=== PATIENT | male | born 1945 | race Caucasian/White ===

== ENCOUNTER → 2017-02-28 16:29 | Outpatient (CLI) | payer MEDICARE ==
[2016-06-20 12:31] VITALS: BMI 29.8
[~2017-02-28 16:29] MED LIST: ALEVE220 MG PO; ALLEGRA-D1 TAB.SR1; ASPIRIN EC81 MG PO; CELEBREX200 MG PO; CO Q-10100 MG PO; CO Q-1030 MG; COREG12.5 MG; COREG6.25 MG OR; FLUTICASONE PRO16 GM NS; GLUCOSAMINE HC500 MG; IMDUR30 MG PO; IMDUR60 MG PO; MUCINEX600 MG; NITROQUICK0.4 MG; NORCO 5/325 TAB1 TA1; POTASSIUM99 M1 PO; POVIDONE-IODINE30 GM TP; PRAVACHOL40 MG PO; PRINIVIL10 MG PO; PRINIVIL20 MG PO; PROSTATE MED; SAW PALMETTO450 MG PO; ZOCOR40 MG PO
[2017-02-28 17:04] LABS: CHOL - HDL RATIO 3.2 ratio (2.3-4.9); LDL-HDL RATIO 1.9 ratio (1.5-3.5)
== END | disposition home or self-care (01) ==
LOC: D.LABREF 16:29
PROVIDERS: Internal Medicine Cardiovascular Disease
DX: E78.5 Hyperlipidemia, unspecified (principal)

== ENCOUNTER → 2019-01-30 08:09 | Outpatient (CLI) | payer MEDICARE | END | disposition home or self-care (01) | LOC: D.HCCARDIO 08:09 | DX: I34.0 Nonrheumatic mitral (valve) insufficiency (principal) ==

== ENCOUNTER → 2020-02-25 09:46 | Outpatient (CLI) | payer MEDICARE ==
[2016-06-20 12:31] VITALS: BMI 29.8
== END | disposition home or self-care (01) ==
LOC: D.HCCECHO 09:46
PROVIDERS: ATTEND Internal Medicine Cardiovascular Disease
DX: I05.9 Rheumatic mitral valve disease, unspecified (principal)

== ENCOUNTER → 2020-05-05 09:00 | Outpatient (CLI) | payer MEDICARE ==
[2016-06-20 12:31] VITALS: BMI 29.8
== END | disposition home or self-care (01) ==
LOC: D.HCCARDIO 09:00
PROVIDERS: ATTEND Internal Medicine Cardiovascular Disease
DX: I25.10 Atherosclerotic heart disease of native coronary artery without angina pectoris (principal)

== ENCOUNTER 2020-05-26 06:07 | Day surgery (SDC) | payer MEDICARE ==
[~2020-05-26] VITALS: Ht 170.2 cm; Wt 82.1 kg
--- NOTE | ~2020-05-26 | HEMODYNAMI ---
PATIENT:NIKKI NOVAK MEDICAL RECORD: [id number] : 49 LOCATION:[facility] ADMISSION DATE: 05/26/20 Generatedon:05/26/20208:34 Patient name: NIKKI NOVAK Patient #: [id number] SSN: [id number] : 1945 Date of study: 05/26/2020 Page: Of Hemodynamic Procedure Report Patient Data Patient Demographics Procedure consent was obtained First Name: NIKKI Gender: Male Last Name: SCARLET : 1945 Middle Initial: E Age: 74 year(s) Patient #: [id number] Race: SSN: [id number] Additional ID: [id number] Contact details [address]: [address] [place] [address] State: [place] City: [place] Zip code: [address] Past Medical History Performed procedures and imaging results Date Procedure Procedure Results Comments 05/05/2020 Stress testing Positive->Intermediate with SPECT MPI risk History of disease Date Diagnosis Comments CAD Allergies Allergen Reaction Date Comments Reported Iodine 06/20/2016 Codeine 06/20/2016 Other allergy 05/26/2020 Iodine, Codeine Admission Admission Data Admission Date: 05/26/2020 Admission Time: 6:07 Arrival Date: 05/26/2020 Arrival Time: 0:00 Admit Source: Other Insurance Payor: Medicare [facility] #: [id number] Height (in.): 67 BSA: 1.94 (m2) Height (cm.): 170.18 BMI: 28.31 (kg/m2) Weight (lbs.): 180.78 Weight (kg.): 82 Lab Results Lab Result Date: 05/26/2020 Lab Result Time: 6:55 Biochemistry Name Units Result Min Max BUN mg/dl 22 --(----)-* 7 18 Creatinine mg/dl 1 --(--*-)-- 0.6 1.3 eGFR ml/min 78 *-(----)-- 90 120 NONAFRICAN CBC Name Units Result Min Max Hematocrit % 42 --(*---)-- 42 54 Hemoglobin g/dl 14 --(*---)-- 13.5 17.5 Procedure Procedure Types Cath Procedure Diagnostic Procedure [facility] w/Coronaries w/Grafts Sedation Charges Moderate Sedation up to 15 minutes Procedure Description Procedure Date Procedure Date: 05/26/2020 Procedure Start Time: 8:14 Procedure End Time: 8:32 Procedure Staff Name Function Catracho Bravo MD Performing Physician Jean-Claude Sher RT Monitor Nancy Britton RT Scrub Rachelle Jenkins RN Nurse Procedure Data Cath Procedure Fluoroscopy Diagnostic fluoroscopy Total fluoroscopy Time: 3.2 time: 3.2 min min Diagnostic fluoroscopy Total fluoroscopy dose: 451 dose: 451 mGy mGy Contrast Material Contrast Material Type Amount (ml) Isovue 300 76 Entry Location Entry Primary Successful Side Size Upsize Upsize Entry Closure Succes sful Closure Location (Fr) 1 (Fr) 2 (Fr) Remarks Device Remarks Femoral Right 5 Fr Exoseal artery Estimated blood loss: 5 ml Diagnostic catheters Device Type Used For End Catheter Placement MULTIPACK JL 4.0 5Fr Procedure catheter DIAGNOSTIC AR1 MOD 5Fr Procedure catheter ([id number]) DIAGNOSTIC IM 5Fr Procedure catheter ([id number]) MULTIPACK Pigtail 5 Fr Procedure catheter Procedure Complications No complications Procedure Medications Medication Administration Route Dosage Oxygen etCO2 Nasal cannula 2 l/min Lidocaine 2% added to field 20 Heparin Flush Bag added to field 2 bags (1000units/500ml NS) 0.9% NaCl I.V. 100 ml/hr Versed I.V. 1 mg Fentanyl I.V. 50 mcg Versed I.V. 1 mg Fentanyl I.V. 50 mcg Versed I.V. 1 mg Hemodynamics Rest BSA: 1.94 (m2) HGB: 14 (g/dl) O2 Consumption: Estimated: 218.59 (ml/min) O2 Cons umption indexed: Estimated:112.68 (ml/min/m) Heart Rate: 63 (bpm) Pressure Samples Time Site Value (mmHg) Purpose Heart Use Rate(bpm) 8:25 LV 157/6,22 Snapshot 82 8:26 AO 144/67(99) Pullback 66 8:26 LV 151/10,22 Pullback 66 Gradients Valve Time Site 1 Site 2 Mean SEP/DFP Peak To Heart Use (mmHg) (sec/min) Peak Rate (mmHg) (bpm) Aortic 8:26 LV AO 6 14 7 66 151/10,22 144/67(99) Calculations Valve P-P Mean Valve Index Valve Source Name Gradient Area Flow (cm2) Aortic 7 6 7 6 Snapshots Pre Cath Intra NCS Post Cath Vital Signs Time Heart Resp SPO2 etCO2 NIBP (mmHg) Rhythm Pain Sedation Rate (ipm) (%) (mmHg) Status Level (bpm) 7:58:37 62 16 100 0 146/80(126) NSR 0 (11) 10(A) , No pain 8:03:00 58 13 100 33.7 149/83(128) NSR 0 (11) 10(A) , No pain 8:07:24 61 15 98 34.5 139/80(120) NSR 0 (11) 10(A) , No pain 8:11:44 63 16 94 39 145/87(120) NSR 0 (11) 9(A) , No pain 8:16:02 63 14 95 41.2 145/81(95) NSR 0 (11) 9(A) , No pain 8:20:24 64 15 97 45 156/84(132) NSR 0 (11) 9(A) , No pain 8:24:46 63 17 97 46.5 143/87(110) NSR 0 (11) 9(A) , No pain 8:29:08 63 17 98 41.3 142/81(124) NSR 0 (11) 10(A) , No pain Medications Time Medication Route Dose Verified Delivered Reason Notes Effe ctiveness by by 8:01:26 Oxygen etCO2 2 Catracho Buffie used for Nasal l/min Lawrence Jenkins RN procedure cannula 8:01:49 0.9% NaCl I.V. 100 Catracho Buffie Per ml/hr Lawrence Jenkins RN physician 8:04:10 Versed I.V. 1 mg Catracho Buffie for Lawrence Jenkins RN sedation 8:04:15 Fentanyl I.V. 50 Catracho Buffie for mcg Lawrence Jenkins RN sedation 8:04:33 Lidocaine 2% added 20ml Catracho Catracho for local to vial Lawrence Bravo MD anesthetic field 8:04:40 Heparin Flush added 2 Catracho Catracho used for Bag to bags Lawrence Bravo MD procedure (1000units/500ml field NS) 8:09:41 Versed I.V. 1 mg Catracho Quianaie for Lawrence Jenkins RN sedation 8:09:44 Fentanyl I.V. 50 Catracho Quianaie for [facility] Lawrence Jenkins RN sedation 8:17:37 Versed I.V. 1 mg Catracho Rachelle for Lawrence Jenkins RN sedation Procedure Log Time Note 7:27:06 Informed consent obtained and on chart 7:33:39 Admit Source: Other 7:35:44 Patient Height : 67 inches 7:35:49 Patient Weight : 180.78 lbs 7:35:55 Insurance Payor : Medicare 7:36:33 Arrival Date: 05/26/2020 12:00:00 AM 7:38:16 Lab Result : Hemoglobin 14 g/dl 7:38:16 Lab Result : Hematocrit 42 % 7:38:16 Lab Result : eGFR NONAFRICAN 78 ml/min 7:38:16 Lab Result : BUN 22 mg/dl 7:38:16 Lab Result : Creatinine 1 mg/dl 7:38:34 Diagnostic Cath Status : Elective 7:38:45 ACC Patient presents with Stable Angina CCS Anginal Class 2--Slight limitation of ordinary activity. 7:38:48 ACCPatient has been prescribed/administered the following anti-anginal medication within the last 2 weeks: Beta Joy 7:38:51 Procedure Status Elective Heart Cath (OP). 7:38:52 Time tracking: Regular hours (M-F 7:00 - 5:00) 7:38:55 Plan of Care:Hemodynamics will remain stable., Cardiac rhythm will remain stable., Comfort level will be maintained., Respiratory function will remain adequate., Patient/ family verbilizes understanding of procedure., Procedure tolerated without complication., Recovers from procedure without complications.. 7:39:14 H&P Date Dictated: 04/27/2020 Within 30 days and on chart., H&P Addendum completed by physician on day of procedure. (MUST COMPLETE FOR ALL OUTPATIENTS). 7:45:19 Rachelle Jenkins RN sent for patient. Start room use. 7:52:34 Patient received from Pre/Post Procedure Room to [facility] Alert and oriented. Tansferred to table in Supine position. 7:52:35 Warm blankets applied, and kita hugger turned on for patient comfort. 7:52:36 Correct patient and procedure confirmed by team. 7:52:37 ECG and BP/O2 sat monitors applied to patient. 7:52:41 Pre-procedure instructions explained to patient. 7:52:41 Pre-op teaching completed and patient verbalized understanding. 7:52:43 Family in waiting room. 7:52:44 Patient NPO since Midnight. 7:57:24 Vital chart was started 7:57:29 Baseline sample Acquired. 7:57:37 Rhythm: sinus rhythm 7:57:40 Full Disclosure recording started 7:57:52 Patient allergic to Other allergyIodine, Codeine 7:57:54 Is the patient allergic to Iodine/contrast media? Yes. 7:57:55 Was the patient premedicated? Yes 7:57:56 Is patient on blood thinner?No 7:58:03 Patient diabetic? No. 7:58:07 Previous problem with sedation/anesthesia? No ? 7:58:09 Snore? No 7:58:09 Sleep apnea? No 7:58:10 Deviated septum? No 7:58:11 Opens mouth fully? Yes 7:58:12 Sticks out tongue? Yes 7:58:13 Airway obstruction? No ? 7:58:15 Dentures? No ? 7:58:17 Pre procedure: right dorsailis pedis pulse 2+ Normal; easily identifiable; not easily obliterated 7:58:19 Patient pain scale 0/10 ?. 7:58:26 IV patent on arrival in left forearm with 0.9% NaCl at KVO. 7:58:28 Lab results completed and on chart. 7:58:56 Stress Test: yes; abnormal Anterior, apical, lateral 7:59:07 Risk of Mortality: <.1% 7:59:11 Risk of blood transfusion: 0.7% 7:59:17 Risk of CARLOTA: 0.3% 7:59:21 Right groin area was prepped with chlora-prep and draped in sterile fashion 7:59:22 Alarms reviewed by R. N. 7:59:22 Sharps counted by scrub and verified by R.N. 7:59:24 Use device set Femoral Dx 7:59:25 ACIST Syringe (61386) opened to sterile field. 7:59:25 Bag Decanter (2002S) opened to sterile field. 7:59:26 Medline Cath Pack ([id number]) opened to sterile field. 7:59:26 ACIST Hand Control (05721) opened to sterile field. 7:59:27 ACIST Manifold (49783) opened to sterile field. 7:59:27 Tegaderm 4 x 4 (1626W) opened to sterile field. 7:59:29 SHEATH 5FR Wray ([id number]) opened to sterile field. 7:59:30 EMERALD Guide Wire (431-739) opened to sterile field. 7:59:31 DIAGNOSTIC Multipack 5Fr catheter set ([id number]) opened to sterile field. 8:01:26 Oxygen 2 l/min etCO2 Nasal cannula was administered by Rachelel Jenkins RN; used for procedure; Verbal order read back and verified. 8:01:49 0.9% NaCl 100 ml/hr I.V. was administered by Rachelle Jenkins RN; Per physician; Verbal order read back and verified. 8:04:10 Versed 1 mg I.V. was administered by Rachelle Jenkins RN; for sedation; Verbal order read back and verified. 8:04:14 Physician arrived 8:04:14 --------ALL STOP TIME OUT------ 8:04:14 Final Timeout: patient, procedure, and site verified with staff and physician. All members of the team are in agreement. 8:04:15 Fentanyl 50 mcg I.V. was administered by Rachelle Jenkins RN; for sedation; Verbal order read back and verified. 8:04:16 Right groin site verified by team. 8:04:19 Fire Safety Assessment: A--An alcohol-based skin anteseptic being used preoperatively., C--Open oxygen or nitrous oxide is being used., D--An ESU, laser, or fiber-optic light is being used. 8:04:22 Physical assessment completed. ASA score P 2 - A patient with mild systemic disease as per Catracho Barvo MD. 8:04:33 Lidocaine 2% 20ml vial added to field was administered by Catracho Bravo MD; for local anesthetic; Verbal order read back and verified. 8:04:38 2) 60-89 Mildly reduced kidney function, and other findings (as for stage 1) point to kidney disease. 8:04:40 Heparin Flush Bag (1000units/500ml NS) 2 bags added to field was administered by Catracho Bravo MD; used for procedure; Verbal order read back and verified. 8:05:53 Maximum allowable contrast dose (3.7 X eGFR X 0.75)216 ml. 8:05:56 Sedation plan: IV Moderate Sedation Medication:Versed, Fentanyl 8:09:25 Zero performed for pressure channel P1 8::41 Versed 1 mg I.V. was administered by Rachelle Jenkins RN; for sedation; Verbal order read back and verified. 8::44 Fentanyl 50 mcg I.V. was administered by Rachelle Jenkins RN; for sedation; Verbal order read back and verified. 8:14:24 Procedure started. 8:14:27 Local anesthetic to right femoral artery with Lidocaine 2% by Catracho Bravo MD.INITIAL ACCESS ONLY 8:15:03 A 5 Fr sheath was inserted into the Right Femoral artery 8:17:29 A MULTIPACK JL 4.0 5Fr catheter was advanced over the wire and used for Procedure. 8:17:37 Versed 1 mg I.V. was administered by Rachelle Jenkins RN; for sedation; Verbal order read back and verified. 8:17:55 LCA angiography performed. 8:18:57 Catheter exchanged over wire. 8:20:27 A DIAGNOSTIC AR1 MOD 5Fr catheter ([id number]) was advanced over the wire and used for Procedure. 8:20:41 SVG to Circ angiography performed. 8:20:56 SVG to RCA angiography performed. 8:21:35 RCA angiography performed. 8:21:45 Catheter exchanged over wire. 8:21:49 A DIAGNOSTIC IM 5Fr catheter ([id number]) was advanced over the wire and used for Procedure. 8:23:25 GUILLEN to LAD angiography performed. 8:24:11 Catheter exchanged over wire. 8:24:17 A MULTIPACK Pigtail 5 Fr catheter was advanced over the wire and used for Procedure. 8:24:18 EXOSEAL 5Fr (EX500) opened to sterile field. 8:25:34 LV gram done using FOUNTAIN 8::38 Injector settings: Ml/sec: 10, Volume: 20, 8:25:39 LV hemodynamics recorded. 8:25:45 EF : 50 % 8:25:56 Catheter removed. 8:26:04 Sheath removed intact; hemostasis achieved with Exoseal to the Right Femoral artery. 8:26:06 Procedure ended.(Physican Out) 8:26:53 Fluoroscopy time 03.20 minutes. 8::56 Flurop Dose total: 451 8::56 Fluoroscopy dose: 451 mGy 8:27:04 Dose Area Product 22158 mGy/cm. 8:27:09 Contrast amount:Isovue 300 76ml. 8:27:11 Maximum allowable dose exceeded? No. 8:27:12 Sharps counted by scrub and verified by R.N. 8:27:14 Insertion/operative site no bleeding no hematoma. 8:27:16 Post-op/insertion site Right Femoral artery dressed using a 4 x 4 and Tegaderm. 8:27:19 Post right femoral artery:stable, soft, clean and dry 8:27:20 Post Procedure Pulses reassessed and unchanged 8:27:27 Post-procedure physical assessment completed. ASA score P 2 - A patient with mild systemic disease as per Catracho Bravo MD. 8:27:30 Post procedure rhythm: unchanged. 8:27:33 Estimated blood loss: 5 ml 8:27:34 Post procedure instruction explained to patient.Patient verbalizes understanding. 8:27:35 Patient needs reinforcement of post procedure teaching. 8:27:50 Procedure type changed to Cath procedure, Diagnostic procedure, LHC, LHC w/Coronaries w/Grafts, Sedation Charges, Moderate Sedation up to 15 minutes 8:31:07 Rachelle Jenkins RN was relieved by Jean-Claude CONRAD(R) as monitoring person 8:32:04 Procedure and supply charges have been captured, reviewed, submitted and are correct. 8:32:06 Procedure Complication : No complications 8:32:09 Vital chart was stopped 8:32:15 [facility] Findings: mild to moderate CAD (<70%) 8:32:17 Operative report dictated upon procedure completion. 8:32:17 See physician's report for complete and final results. 8:32:18 Report given to Pre/Post Procedure Room. 8:32:20 Patient transfered to Pre/Post Procedure Room with Stretcher. 8:32:22 Procedure ended. 8:32:22 Full Disclosure recording stopped 8:32:28 End room use (Document Last) 8:32:48 End room use (Document Last) Device Usage Item Name Manufacture Quantity Catalog Hospital Part Current Minimal L ot# / Number Charge Number Stock Stock Serial# Code ACIST Acist 1 42023 413181 807544 594382 20 Syringe Medical (12566) Systems Inc Bag Microtek 1 092579 65097 203955 5 Decanter Medical Inc. () Medline Medline 1 [id number] 348946 22293 385344 5 Cath Pack ([id number]) ACIST Hand Acist 1 82321 042926 756690 082728 5 Control Medical (67698) Systems Inc ACIST Acist 1 28439 527426 544174 984410 5 Manifold Medical (25420) Systems Inc Tegaderm 4 3M 1 1626W 755902 180527 768714 5 x 4 (1626W) SHEATH 5FR Terumo 1 FYM064 976428 708884 424600 5 Wray (QTC117) EMERALD Cardinal 1 502-455 349360 540559 693972 5 Guide Wire Health (502-455) DIAGNOSTIC Cardinal 1 KS9100 650757 23994 491741 30 Multipack Health 5Fr catheter set ([id number]) MULTIPACK Cardinal 1 495406 5 JL 4.0 5Fr Health catheter DIAGNOSTIC Cardinal 1 [id number] 271980 578495 628708 15 AR1 MOD 5Fr Health catheter (363797T) DIAGNOSTIC Cardinal 1 [id number] 659323 660279 116321 5 IM 5Fr Health catheter (152477M) MULTIPACK Cardinal 1 867380 5 Pigtail 5 Health Fr catheter EXOSEAL 5Fr Cardinal 1 EX500 359163 719439 649219 10 (EX500) Health Signature Audit [place] Stage Time Signature Unsigned Intra-Procedure 05/26/2020 Rachelle Jenkins 8:32:48 AM RN; Jean-Claude Sher RT(R); Catracho Bravo MD [place] [id number] [place] [id number]
[2020-05-26 07:03] VITALS: BP 147/83; Ht 170.2 cm; Wt 82.1 kg
[2020-05-26 07:06] LABS: BASOPHILS 0.1 % (0-2); EOSINOPHILS 0.1 % (0-7); IMMATURE GRANULOCYTES 0.3 % (0-5); LYMPHOCYTES 9.6 % (15-50); MCH 29.7 pg (26.0-34.0); MCHC 33.3 g/dL (31.0-37.0); MCV 89.2 fL (80.0-100.0); MONOCYTES 4.9 % (2-11); PLATELET COUNT 209 10x3/uL (130-400); RBC 4.71 10x6/uL (4.20-6.10); RDW 12.7 % (11.5-14.5); WBC 13.8 10x3/uL (4.8-10.8)
[2020-05-26 07:33] LABS: ALT (SGPT) 22 U/L (10-68); CALC OSMOLALITY 282 mosm/kg (275-300); CALCIUM 9.4 mg/dL (8.5-10.1); CARBON DIOXIDE 28.4 mmol/L (21.0-32.0); CHLORIDE - SERUM 106 mmol/L (98-107); CHOLESTEROL, TOTAL 207 mg/dL (0-200); GLUCOSE 108 mg/dL (74-106); HDL CHOLESTEROL 70 mg/dL (32-96); LDL CHOLESTEROL 123 mg/dL (0-100); LDL-HDL RATIO 1.8 ratio (1.5-3.5); POTASSIUM - SERUM 4.2 mmol/L (3.5-5.1); SODIUM 140 mmol/L (136-145); TRIGLYCERIDE 73 mg/dL (30-200); UREA NITROGEN 22 mg/dL (7-18); eGFR NON AFRICAN AMERICAN 78 mL/min (90-120)
[2020-05-26] MEDS ORDERED: VITAMIN D1000 UNIT PO (07:45)
[2020-05-26] MEDS ORDERED: SUPER B COMPLE1 EAC1 PO (07:45)
[2020-05-26] MEDS ORDERED: mag citrate (07:46)
[2020-05-26] MEDS ORDERED: [UNRECOGNIZED DRUG - OTHER] PO (07:48)
[2020-05-26] MEDS ORDERED: LUTEIN20 MG PO (07:51)
--- NOTE | 2020-05-26 08:40 | NUR ---
PT REC'D TO ROOM 8 VIA STRETCHER FROM QUANTITATIVE ANALYST. MONITORS ESTAB. AT AND DR. WAGGONER HERE TO UPDATE PT AND . SEE TUNNELLER. ALARMS ON AND C/L IN REACH.
--- NOTE | 2020-05-26 08:55 | NUR ---
R GROIN SITE SOFT, NO S/S BLEEDING OR HEMATOMA. R LEG/FOOT WARM WITH EASILY PALP PULSES. VSS, PT RESTING QUIETLY.
--- NOTE | 2020-05-26 09:25 | NUR ---
R GROIN SITE SOFT, NO S/S BLEEDING OR HEMATOMA. PULSES PALP. VSS. PT RESTING QUIETLY. AT BS.
--- NOTE | 2020-05-26 09:40 | NUR ---
R GROIN SITE SOFT, C/D/I, NO S/S BLEEDING OR HEMATOMA. PULSES PALP. VSS.
--- NOTE | 2020-05-26 10:05 | NUR ---
R GROIN SITE SOFT, C/D/I. HOB ELEVATED AND COFFEE PROVIDED PER REQUEST. VSS. PULSES PALP.
--- NOTE | 2020-05-26 10:24 | NUR ---
ALL DISCHARGE INSTRUCTIONS, INCLUDING RESTRICTIONS, MEDS AND F/U APPT, REVIEWED WITH PT AND HIS . UNDERSTANDING VERBALIZED, NO QUESTIONS AT THIS TIME.
--- NOTE | 2020-05-26 10:31 | NUR ---
R GROIN SITE SOFT, NO S/S BLEEDING OR HEMATOMA. PIV D/C'D INTACT AND PT ALLOWED UP TO GET DRESSED AND GO TO BR INDEPENDENTLY. ASSISTING.
--- NOTE | 2020-05-26 10:42 | NUR ---
PT D/C TO PRIVATE VEHICLE WITH , PT HAS ALL BELONGINGS AND PAPERWORK.
== END 2020-05-26 10:42 | disposition home or self-care (01) ==
LOC: D.CATH 06:07 → EDSTATUS 08:00 → D.CATH 08:00
PROVIDERS: ATTEND Internal Medicine Cardiovascular Disease
DX: I25.119 Atherosclerotic heart disease of native coronary artery with unspecified angina pectoris (principal); R94.39 Abnormal result of other cardiovascular function study; E78.5 Hyperlipidemia, unspecified; I10 Essential (primary) hypertension; I34.0 Nonrheumatic mitral (valve) insufficiency

== ENCOUNTER → 2021-03-01 20:43 | Outpatient (CLI) | payer MEDICARE ==
[2020-05-26 07:03] VITALS: BMI 28.3
[~2021-03-01 20:43] MED LIST changes: +LUTEIN20 MG PO; +SUPER B COMPLE1 EAC1 PO; +VITAMIN D1000 UNIT PO; +[UNRECOGNIZED DRUG - OTHER] PO; +mag citrate
[2021-03-01 21:01] LABS: BASOPHILS 0.3 % (0-2); EOSINOPHILS 3.6 % (0-7); HEMOGLOBIN 13.8 g/dL (13.5-17.5); IMMATURE GRANULOCYTES 0.1 % (0-5); LYMPHOCYTE ABS# 1.94 10x3/uL (1.32-3.57); LYMPHOCYTES 25.2 % (15-50); MCH 29.9 pg (26.0-34.0); MCHC 33.7 g/dL (31.0-37.0); MCV 88.7 fL (80.0-100.0); MEAN PLATELET VOLUME 11.1 fL (7.4-10.4); MONOCYTES 8.1 % (2-11); NEUTROPHIL ABS# 4.83 10x3/uL (1.78-5.38); NEUTROPHILS 62.7 % (40-80); PLATELET COUNT 223 10x3/uL (130-400); RBC 4.62 10x6/uL (4.20-6.10); RDW 13.1 % (11.5-14.5); WBC 7.7 10x3/uL (4.8-10.8)
[2021-03-01 21:36] LABS: T4 THYROXIN - FREE 0.86 ng/dL (0.76-1.46); THYROID STIMULATING HORMONE 1.54 uIU/mL (0.36-3.74)
[2021-03-01 21:40] LABS: % SATURATION 32 % (15-55); IRON 90 ug/dl (35-150); TOTAL IRON BIND CAPACITY 276 ug/dl (260-445); UNSAT IRON BIND CAPACITY 186 ug/dl (150-375)
== END | disposition home or self-care (01) ==
LOC: D.LABREF 20:43
PROVIDERS: ATTEND Nurse Practitioner
DX: R53.83 Other fatigue (principal); I25.10 Atherosclerotic heart disease of native coronary artery without angina pectoris; I10 Essential (primary) hypertension; R53.81 Other malaise

== ENCOUNTER → 2021-03-04 12:58 | Outpatient (CLI) | payer MEDICARE ==
[2020-05-26 07:03] VITALS: BMI 28.3
== END | disposition home or self-care (01) ==
LOC: D.HCCECHO 12:58
PROVIDERS: ATTEND Internal Medicine Cardiovascular Disease
DX: I25.10 Atherosclerotic heart disease of native coronary artery without angina pectoris (principal)